=== PATIENT | female | born 1935 | race Caucasian/White ===

== ENCOUNTER 2017-12-16 14:13 | Outpatient (CLI) | payer MEDICARE, OTHER | END 2017-12-16 14:14 | disposition home or self-care (01) | LOC: BICMAMMO 14:13 | PROVIDERS: ATTEND Specialist | DX: Z12.31 Encounter for screening mammogram for malignant neoplasm of breast (principal); R92.1 Mammographic calcification found on diagnostic imaging of breast; Z80.3 Family history of malignant neoplasm of breast; Z80.41 Family history of malignant neoplasm of ovary | CPT/HCPCS: 77063; 77067 ==

== ENCOUNTER 2018-11-05 12:57 | Outpatient (CLI) | payer MEDICARE, OTHER ==
--- NOTE | 2018-11-05 14:38 | RAD ---
PORTABLE AP CHEST X-RAY: 11/05/2018 HISTORY: Dyspnea. COMPARISON: 08/13/2017 FINDINGS: The cardiac silhouette and pulmonary vasculature are within normal limits. The thoracic aorta is tor tuous. The pulmonary vasculature is within normal limits. The lungs are clear. Degenerative change s are seen in the spine with left convex curvature of the thoracolumbar spine. IMPRESSION: No acute cardiopulmonary process. POS: MUKESH
== END 2018-11-05 12:58 | disposition home or self-care (01) ==
LOC: RAD 12:57
PROVIDERS: ATTEND Internal Medicine Critical Care Medicine
DX: R06.00 Dyspnea, unspecified (principal)
CPT/HCPCS: 71046

== ENCOUNTER 2018-12-23 14:28 | Outpatient (CLI) | payer MEDICARE, OTHER | END 2018-12-23 14:29 | disposition home or self-care (01) | LOC: BICMAMMO 14:28 | PROVIDERS: ATTEND Internal Medicine | DX: Z12.31 Encounter for screening mammogram for malignant neoplasm of breast (principal); Z80.3 Family history of malignant neoplasm of breast; Z80.41 Family history of malignant neoplasm of ovary | CPT/HCPCS: 77063; 77067 ==

== ENCOUNTER 2019-12-24 10:14 | Outpatient (CLI) | payer MEDICARE, OTHER ==
--- NOTE | 2019-12-30 10:53 | MMO ---
Bilateral Lore 3D Diagnostic Bilat W CAD. CLINICAL HISTORY: Patient is 84 years old and is seen for diagnostic exam and pain in the right breast at 6 o'clock, sub-areolar. The patient has the following family history of breast cancer: mother, malignant (generic). The patient has no personal history of cancer. VIEWS: The views performed were: bilateral craniocaudal with tomosynthesis; bilateral mediolateral oblique with tomosynthesis; and bilateral mediolateral with tomosynthesis. FILMS COMPARED: The present examination has been compared to prior imaging studies performed at [facility] on 12/16/2017, 12/23/2018 and 12/24/2019, and at [facility] on 11/09/2016. This study has been interpreted with the assistance of computer-aided detection. Standard digital mammography was supplemented by the acquisition of digital breast tomosynthesis. MAMMOGRAM FINDINGS: There are scattered fibroglandular densities. There are stable benign appearing calcifications seen in both breasts. There are no suspicious masses, suspicious calcifications, or new areas of architectural distortion. IMPRESSION: THERE IS NO MAMMOGRAPHIC EVIDENCE OF MALIGNANCY. A ROUTINE FOLLOW-UP MAMMOGRAM IN 1 YEAR IS RECOMMENDED. ACR BI-RADS Category 2 - Benign finding MAMMOGRAPHY NOTE: 1. A negative mammogram report should not delay a biopsy if a dominant of clinically suspicious mass is present. 2. Approximately 10% to 15% of breast cancers are not detected by mammography. 3. Adenosis and dense breasts may obscure an underlying neoplasm. Reported by: XANDER WALLS MD Electonically Signed: [id number]
== END 2019-12-24 10:15 | disposition home or self-care (01) ==
LOC: BICMAMMO 10:14
PROVIDERS: ATTEND Internal Medicine
DX: N64.4 Mastodynia (principal)
CPT/HCPCS: 77066; G0279; 77063; 77067

== ENCOUNTER 2020-12-26 09:38 | Outpatient (CLI) | payer MEDICARE, OTHER ==
--- NOTE | 2020-12-26 10:58 | MMO ---
Bilateral MAMMO Bilat Screen [facility]. CLINICAL HISTORY: Patient is 85 years old and is seen for screening. The patient has the following family history of breast cancer: mother, malignant (generic). The patient has no personal history of cancer. VIEWS: The views performed were: . FILMS COMPARED: The present examination has been compared to prior imaging studies performed at [facility] on 12/16/2017, 12/23/2018 and 12/24/2019, and at [facility] on 11/09/2016. This study has been interpreted with the assistance of computer-aided detection. MAMMOGRAM FINDINGS: There are scattered fibroglandular densities. Benign calcifications are noted bilaterally. There are no suspicious masses, suspicious calcifications, or new areas of architectural distortion. IMPRESSION: THERE IS NO MAMMOGRAPHIC EVIDENCE OF MALIGNANCY. A ROUTINE FOLLOW-UP MAMMOGRAM IN 1 YEAR IS RECOMMENDED. THE RESULTS OF THIS EXAM WERE SENT TO THE PATIENT. ACR BI-RADS Category 2 - Benign finding MAMMOGRAPHY NOTE: 1. A negative mammogram report should not delay a biopsy if a dominant of clinically suspicious mass is present. 2. Approximately 10% to 15% of breast cancers are not detected by mammography. 3. Adenosis and dense breasts may obscure an underlying neoplasm. Reported by: KEVYN MCDANIEL MD Electonically Signed: [id number]
== END 2020-12-26 09:39 | disposition home or self-care (01) ==
LOC: BICMAMMO 09:38
PROVIDERS: ATTEND Internal Medicine
DX: Z12.31 Encounter for screening mammogram for malignant neoplasm of breast (principal); Z80.3 Family history of malignant neoplasm of breast
CPT/HCPCS: 77063; 77067

== ENCOUNTER 2022-08-29 10:28 | Outpatient (CLI) | payer MEDICARE | END 2022-08-29 10:29 | disposition home or self-care (01) | LOC: RAD 10:28 | PROVIDERS: ATTEND Internal Medicine Critical Care Medicine | DX: R06.09 Other forms of dyspnea (principal); M47.814 Spondylosis without myelopathy or radiculopathy, thoracic region; M47.816 Spondylosis without myelopathy or radiculopathy, lumbar region | CPT/HCPCS: 71046 ==